=== PATIENT | male | born 1965 | race Caucasian/White ===

== ENCOUNTER 2018-09-28 10:50 | Inpatient (IN) | payer BC ==
[2018-09-28] MEDS: SODIUM CHLORIDE 0.9% FLUSH 10 ML SOL IV PRN ×3 (11:36→11:46)
[2018-09-28] MEDS ORDERED: MORPHINE SULFATE 10 MG/ML SOL IV ONE ×3 (11:36→13:41)
[2018-09-28] MEDS ORDERED: KETOROLAC TROMETHAMINE 30 MG/ML SOL IV ONE (11:36)
[2018-09-28] MEDS ORDERED: KETOROLAC TROMETHAMINE 30 MG/ML SOL ONE (11:39)
[2018-09-28] MEDS ORDERED: MORPHINE SULFATE 10 MG/ML SOL ONE ×3 (11:39→13:43)
[2018-09-28 11:50] LABS: ALBUMIN 3.9 gm/dl (3.4-5.0); BILIRUBIN,TOTAL 1.2 mg/dl (0.2-1.0); CALCIUM 8.6 mg/dl (8.5-10.1); CREATININE 1.41 mg/dl (0.80-1.30); POTASSIUM 4.1 mMol/L (3.5-5.1); TOTAL PROTEIN 7.1 gm/dl (6.4-8.2)
[2018-09-28 11:52] LABS: APPEARANCE,URINE Slightly Cloudy; BILIRUBIN,URINE NEGATIVE (NEGATIVE); COLOR,URINE Yellow; GLUCOSE, URINE (UA) NEGATIVE (NEGATIVE); KETONES,URINE NEGATIVE (NEGATIVE); LEUKOCYTE ESTERASE ,URINE NEGATIVE (NEGATIVE); NITRATE,URINE NEGATIVE (NEGATIVE); OCCULT BLOOD,URINE 3+ (NEG-TRACE); UROBILINOGEN,URINE 0.2 (0.2-1.0 EU)
[2018-09-28 11:54] LABS: CARBON DIOXIDE 27.7 mEq/L (21-32)
[2018-09-28 12:12] LABS: BASOPHILS % (AUTO) 1 % (0-3); EOSINOPHILS % (AUTO) 1 % (0-9); HEMATOCRIT 46 % (39-53); HEMOGLOBIN 15.3 gm/dl (13.5-17.7); LYMPHOCYTES % (AUTO) 27.2 % (10-50); MEAN CORPUSCULAR HEMOGLOBIN 31.2 pg (27.0-32.0); MEAN CORPUSCULAR HGB CONC 33.3 gm/dl (32.0-36.0); MEAN CORPUSCULAR VOLUME 94 fL (80-100); MONOCYTES % (AUTO) 8.4 % (0-12); NEUTROPHILS % (AUTO) 61.8 % (37-80)
[2018-09-28 12:20] LABS: BACTERIA TRACE (< 1+); CRYSTALS NEGATIVE (0-3 AVE/HPF); EPITHELIAL CELLS 0-1 (SQUAMOUS); RBC,URINE 30-40 (0-3AV/HPF); WBC,URINE 0-3 (0-5AV/HPF)
[2018-09-28] MEDS ORDERED: SODIUM CHLORIDE 0.9% 1000ML 1,000 ML IV ONE ×2 (12:21→19:05)
[2018-09-28] MEDS ORDERED: TAMSULOSIN HYDROCHLORIDE 0.4 MG CAP ONE (13:09)
[2018-09-28] MEDS: TAMSULOSIN HYDROCHLORIDE 0.4 MG CAP PO SCH ×2 (13:16→20:59)
[2018-09-28 15:29] LABS: CALCIUM 8.5 mg/dl (8.5-10.1); CARBON DIOXIDE 28.8 mEq/L (21-32); CREATININE 1.51 mg/dl (0.80-1.30); POTASSIUM 4.4 mMol/L (3.5-5.1)
[2018-09-28] MEDS ORDERED: ACETAMINOPHEN 325 MG PO ONE (17:24)
[2018-09-28] MEDS ORDERED: MORPHINE SULFATE 10 MG/ML SOL IV PRN (17:25)
[2018-09-28] MEDS ORDERED: ACETAMINOPHEN 500 MG 500 MG TAB PO ONE (17:32)
[2018-09-28] MEDS ORDERED: HYDROMORPHONE 1 MG/ML SYRINGE IV PRN (19:09)
[2018-09-28] MEDS ORDERED: ACETAMINOPHEN 500 MG 500 MG TAB PO PRN (19:38)
[2018-09-29 07:19] LABS: BASOPHILS % (AUTO) 1 % (0-3); EOSINOPHILS % (AUTO) 1 % (0-9); HEMATOCRIT 43 % (39-53); HEMOGLOBIN 14.2 gm/dl (13.5-17.7); LYMPHOCYTES % (AUTO) 17.5 % (10-50); MEAN CORPUSCULAR HEMOGLOBIN 31.3 pg (27.0-32.0); MEAN CORPUSCULAR HGB CONC 33.2 gm/dl (32.0-36.0); MEAN CORPUSCULAR VOLUME 94 fL (80-100); MONOCYTES % (AUTO) 9.5 % (0-12); NEUTROPHILS % (AUTO) 71.1 % (37-80)
[2018-09-29 07:24] LABS: CALCIUM 8.1 mg/dl (8.5-10.1); CARBON DIOXIDE 28.5 mEq/L (21-32); CREATININE 1.98 mg/dl (0.80-1.30); POTASSIUM 4.3 mMol/L (3.5-5.1)
[2018-09-29] MEDS ORDERED: OXYCODONE HYDROCHLORIDE 5 MG TAB PO ONE (09:37)
[2018-09-29] MEDS: SODIUM CHLORIDE 0.9% FLUSH 10 ML SOL IV SCH ×2 (09:51→16:59)
[2018-09-29] MEDS ORDERED: OXYCODONE HYDROCHLORIDE 5 MG TAB PO PRN (10:50)
[2018-09-29] MEDS: SODIUM CHLORIDE 0.9% 1000ML 1,000 ML IV SCH ×2 (11:06→17:57)
[2018-09-29] MEDS ORDERED: TRAZODONE HYDROCHLORIDE 50 MG TAB PO SCH (21:00)
[2018-09-29] MEDS ORDERED: GABAPENTIN 300 MG CAP PO SCH (21:00)
[2018-09-29] MEDS: TAMSULOSIN HYDROCHLORIDE 0.4 MG CAP PO SCH (21:53)
[2018-09-30] MEDS: SODIUM CHLORIDE 0.9% 1000ML 1,000 ML IV SCH (00:38)
[2018-09-30 00:44] VITALS: TEMP 98.5
[2018-09-30] MEDS: SODIUM CHLORIDE 0.9% FLUSH 10 ML SOL IV SCH ×2 (05:31→08:29)
[2018-09-30 07:22] LABS: BASOPHILS % (AUTO) 1 % (0-3); EOSINOPHILS % (AUTO) 1 % (0-9); HEMATOCRIT 39 % (39-53); HEMOGLOBIN 13.3 gm/dl (13.5-17.7); LYMPHOCYTES % (AUTO) 18.4 % (10-50); MEAN CORPUSCULAR HGB CONC 33.9 gm/dl (32.0-36.0); MEAN CORPUSCULAR VOLUME 94 fL (80-100)
[2018-09-30 07:31] LABS: CALCIUM 7.9 mg/dl (8.5-10.1); CARBON DIOXIDE 26.2 mEq/L (21-32); CREATININE 1.15 mg/dl (0.80-1.30); POTASSIUM 4.1 mMol/L (3.5-5.1)
[2018-09-30 08:28] VITALS: BP 116/74; PULSE 74; RESP 20; O2SAT 96
== END 2018-09-30 10:30 | disposition home or self-care (01) | DRG 465 ==
LOC: ED 10:50 → ACUTE CARE 16:46 → UNDOADMOB 16:46 → ACUTE CARE 17:00 → OBSVTOIN 09-29 10:55
PROVIDERS: ADMIT Family Medicine; ATTEND Family Medicine
DX: N20.2 Calculus of kidney with calculus of ureter (principal); N17.9 Acute kidney failure, unspecified; N23 Unspecified renal colic; E80.6 Other disorders of bilirubin metabolism; N28.1 Cyst of kidney, acquired; R91.8 Other nonspecific abnormal finding of lung field
CPT/HCPCS: 36415; 51798; 71250; 74176; 80048; 80053; 81001; 82248; 85025; 93012; 94762; 96365; 96366; 96374; 96375; 99284; 99285; J1885; J2270; A9270-GY; J1170

== ENCOUNTER 2018-10-01 12:12 | Emergency (ER) | payer BC ==
[2018-10-01 12:23] VITALS: RESP 18; TEMP 97.4
[2018-10-01] MEDS ORDERED: HYDROMORPHONE HCL 2 MG/ML SOL IV ONE (12:31)
[2018-10-01] MEDS ORDERED: HYDROMORPHONE 1 MG/ML SYRINGE ONE (12:33)
[2018-10-01] MEDS ORDERED: SOLUMEDROL 125 MG/2 ML 125 MG/2 ML PDS IV ONE (12:46)
[2018-10-01] MEDS ORDERED: SOLUMEDROL 125 MG/2 ML 125 MG/2 ML PDS ONE (12:54)
[2018-10-01] MEDS: SODIUM CHLORIDE 0.9% 1000ML 1,000 ML IV SCH ×2 (13:00→14:00)
[2018-10-01 13:09] LABS: CALCIUM 8.6 mg/dl (8.5-10.1); CARBON DIOXIDE 28.7 mEq/L (21-32); CREATININE 1.41 mg/dl (0.80-1.30); POTASSIUM 3.8 mMol/L (3.5-5.1)
[2018-10-01] MEDS ORDERED: KETOROLAC TROMETHAMINE 30 MG/ML SOL IV ONE (13:11)
[2018-10-01] MEDS ORDERED: TAMSULOSIN HYDROCHLORIDE 0.4 MG CAP ONE (13:12)
[2018-10-01] MEDS ORDERED: KETOROLAC TROMETHAMINE 30 MG/ML SOL ONE (13:12)
[2018-10-01] MEDS ORDERED: TAMSULOSIN HYDROCHLORIDE 0.4 MG CAP PO SCH ×2 (13:15→21:00)
[2018-10-01 13:30] LABS: APPEARANCE,URINE Clear; BILIRUBIN,URINE NEGATIVE (NEGATIVE); COLOR,URINE Yellow; GLUCOSE, URINE (UA) NEGATIVE (NEGATIVE); KETONES,URINE NEGATIVE (NEGATIVE); LEUKOCYTE ESTERASE ,URINE NEGATIVE (NEGATIVE); NITRATE,URINE NEGATIVE (NEGATIVE); OCCULT BLOOD,URINE TRACE LYSED (NEG-TRACE); PH,URINE 5.5; UROBILINOGEN,URINE 0.2 (0.2-1.0 EU)
[2018-10-01 13:40] LABS: BACTERIA 1+ (< 1+); CRYSTALS NEGATIVE (0-3 AVE/HPF); EPITHELIAL CELLS 0-2 (SQUAMOUS); RBC,URINE 0-1 (0-3AV/HPF); WBC,URINE 0-2 (0-5AV/HPF)
[2018-10-01 13:53] VITALS: O2SAT 95
[2018-10-01] MEDS ORDERED: SODIUM CHLORIDE 0.9% 1000ML 1,000 ML IV SCH (14:15)
[2018-10-01 15:21] VITALS: BP 105/79; PULSE 74
== END 2018-10-01 15:37 | disposition home or self-care (01) ==
LOC: ED 12:12
DX: N20.1 Calculus of ureter (principal); N17.8 Other acute kidney failure; N17.9 Acute kidney failure, unspecified
CPT/HCPCS: 36415; 74176; 80048; 81001; 96365; 96366; 96374; 96375; 99283; 99284; J1885; J2930; A9270-GY; J1170